=== PATIENT | female | born 1985 | race African-American/Black ===

== ENCOUNTER 2017-10-24 09:55 | Emergency (ER) | payer MEDICAID, OTHER ==
[~2017-10-24 09:55] MED LIST: Z.0.NO CURRENT MEDS
[2017-10-24] MEDS ORDERED: IOHEXOL 350 MG/ML 10 ML VIAL (for RAD DIAG) IVCONTRAST ONE (09:56)
[2017-10-24 09:59] VITALS: BP 156/88; PULSE 71; RESP 16; TEMP 98.8; O2SAT 98
[2017-10-24] MEDS ORDERED: SODIUM CHLOR 0.9% 1000 ML INJ 1,000 ML IV SCH (10:10)
[2017-10-24] MEDS ORDERED: PANTOPRAZOLE SODIUM 40 MG VIAL IVP ONE (10:15)
[2017-10-24] MEDS ORDERED: MORPHINE SULFATE 4 MG/ML INJ IV PUSH ONE (10:15)
[2017-10-24] MEDS ORDERED: SODIUM CHLORIDE 0.9% FLUSH 10 ML FLUSH IV FLUSH PRN (10:15)
[2017-10-24] MEDS ORDERED: ONDANSETRON HCL 4 MG/2 ML VIAL IVP ONE (10:15)
--- NOTE | 2017-10-24 10:18 | PD ---
HPI Chief Complaint: GI Complaint Time Seen by Provider: 10:07 Travel History International Travel<30 days: No Contact w/Intl Traveler<30days: No Traveled to known affect area: No History of Present Illness HPI 31-year-old Afro-[place] female presents the emergency department with 3 day history of nausea, vomiting, and diarrhea. Patient denies specific fever. Time she threw up was 45 minutes prior to arrival. Patient denies urinary or vaginal symptoms. Last menstrual period was October 11. She denies upper respiratory symptoms or chest pain. No shortness of breath. Patient is not a heavy drinker. She denies blood in the vomitus or diarrhea. Pain is about a 7 out of 10. Patient has no family history of Crohn's or colitis. Patient has no known drug allergies. PFSH Past Medical History Medical History: Denies Significant Hx Diminished Hearing: No Headaches: Yes ?: Not LMP: 10/11/17 : 3 Para: 2 : 1 Past Surgical History Surgical History: No Previous Surgery Section: Yes Social History Alcohol Use: Yes (OCC) Tobacco Use: No Substance Use: No Allergies-Medications (Allergen,Severity, Reaction): Coded Allergies: No Known Allergies (Verified Allergy, Unknown, 10/24/17) Reported Meds & Prescriptions Reported Meds & Active Scripts Active Zofran (Ondansetron HCl) 4 Mg Tab 4 Mg PO Q6HR PRN Review of Systems Except as stated in HPI: all other systems reviewed are Neg General / Constitutional: No: Fever, Chills Eyes: No: Visual changes HENT: No: Headaches Cardiovascular: No: Chest Pain or Discomfort Respiratory: No: Shortness of Breath Gastrointestinal: Positive: Nausea, Vomiting, Diarrhea, Abdominal Pain, No: Hematemesis, Hematochezia, Loss of Appetite Genitourinary: No: Dysuria Musculoskeletal: No: Pain Skin: No Rash Neurologic: No: Weakness Psychiatric: No: Depression Endocrine: No: Polydipsia Hematologic/Lymphatic: No: Easy Bruising Physical Exam Narrative GENERAL: Patient is ambulatory but appears ill but not septic. SKIN: Warm and dry. Mild pallor. Moderate decreased turgor. HEAD: Atraumatic. Normocephalic. EYES: Pupils equal and round. No scleral icterus. No injection or drainage. ENT: No nasal bleeding or discharge. Mucous membranes pink and dry. [place] clear. Airway is patent. NECK: Trachea midline. Supple and nontender. CARDIOVASCULAR: Regular rate and rhythm. RESPIRATORY: No accessory muscle use. Clear to auscultation. Breath sounds equal bilaterally. GASTROINTESTINAL: Abdomen soft, mild to moderate generalized tenderness, with more localized tenderness in the right lower quadrant, without guarding, but mild peritoneal signs, nondistended. Decreased bowel sounds in all quadrants. Hepatic and splenic margins not palpable. MUSCULOSKELETAL: Extremities without clubbing, cyanosis, or edema. No obvious deformities. NEUROLOGICAL: Awake and alert. No obvious cranial nerve deficits. Motor grossly within normal limits. Five out of 5 muscle strength in the arms and legs. Normal speech. PSYCHIATRIC: Appropriate mood and affect; insight and judgment normal. Data Data Last Documented VS Vital Signs Date Time Temp Pulse Resp B/P (MAP) Pulse Ox O2 Delivery O2 Flow Rate FiO2 10/24/17 10:26 Room Air 10/24/17 09:59 98.8 71 16 98 Orders Orders Complete Blood Count With Diff (10/24/17 10:10) Comprehensive Metabolic Panel (10/24/17 10:10) Lipase (10/24/17 10:10) Prothrombin Time / Inr (Pt) (10/24/17 10:10) Act Partial Throm Time (Ptt) (10/24/17 10:10) Urinalysis - C+S If Indicated (10/24/17 10:10) Ct Abd/Pel W Iv Contrast(Rout) (10/24/17 10:10) Iv Access Insert/Monitor (10/24/17 10:10) Ecg Monitoring (10/24/17 10:10) Oximetry (10/24/17 10:10) NPO (10/24/17 10:10) Morphine Inj (Morphine Inj) (10/24/17 10:15) Ondansetron Inj (Zofran Inj) (10/24/17 10:15) Pantoprazole Inj (Protonix Inj) (10/24/17 10:15) Sodium Chlor 0.9% 1000 Ml Inj (Ns 1000 M (10/24/17 10:10) Sodium Chloride 0.9% Flush (Ns Flush) (10/24/17 10:15) Ed Urine Pregnancytest Poc (10/24/17 10:10) Iohexol 350 Inj (Omnipaque 350 Inj) (10/24/17 09:56) Labs Laboratory Tests Test 10/24/17 10:30 White Blood Count 9.1 TH/MM3 Red Blood Count 4.63 MIL/MM3 Hemoglobin 15.2 GM/DL Hematocrit 45.0 % Mean Corpuscular Volume 97.2 FL Mean Corpuscular Hemoglobin 32.8 PG Mean Corpuscular Hemoglobin Concent 33.8 % Red Cell Distribution Width 12.2 % Platelet Count 306 TH/MM3 Mean Platelet Volume 8.7 FL Neutrophils (%) (Auto) 67.3 % Lymphocytes (%) (Auto) 22.8 % Monocytes (%) (Auto) 7.8 % Eosinophils (%) (Auto) 1.0 % Basophils (%) (Auto) 1.1 % Neutrophils # (Auto) 6.1 TH/MM3 Lymphocytes # (Auto) 2.1 TH/MM3 Monocytes # (Auto) 0.7 TH/MM3 Eosinophils # (Auto) 0.1 TH/MM3 Basophils # (Auto) 0.1 TH/MM3 CBC Comment DIFF FINAL Differential Comment Prothrombin Time 10.7 SEC Prothromb Time International Ratio 1.1 RATIO Activated Partial Thromboplast Time 28.4 SEC Urine Color YELLOW Urine Turbidity CLOUDY Urine pH 6.5 Urine Specific Colony 1.024 Urine Protein TRACE mg/dL Urine Glucose (UA) NEG mg/dL Urine Ketones NEG mg/dL Urine Occult Blood NEG Urine Nitrite NEG Urine Bilirubin NEG Urine Urobilinogen LESS THAN 2.0 MG/DL Urine Leukocyte Esterase MOD Urine RBC 1 /hpf Urine WBC 6 /hpf Urine Squamous Epithelial Cells 59 /hpf Urine Bacteria OCC /hpf Urine Hyaline Casts 2 /lpf Urine Mucus FEW /lpf Microscopic Urinalysis Comment CULT NOT INDICATED Blood Urea Nitrogen 9 MG/DL Creatinine 0.77 MG/DL Random Glucose 95 MG/DL Total Protein 7.8 GM/DL Albumin 3.8 GM/DL Calcium Level 8.8 MG/DL Alkaline Phosphatase 57 U/L Aspartate Amino Transf (AST/SGOT) 14 U/L Alanine Aminotransferase (ALT/SGPT) 22 U/L Total Bilirubin 0.8 MG/DL Sodium Level 137 MEQ/L Potassium Level 3.7 MEQ/L Chloride Level 104 MEQ/L Carbon Dioxide Level 27.1 MEQ/L Anion Gap 6 MEQ/L Estimat Glomerular Filtration Rate 107 ML/MIN Lipase 68 U/L [facility] Medical Decision Making Medical Screen Exam Complete: Yes Emergency Medical Condition: Yes Differential Diagnosis Gastroenteritis. Colitis. Diverticulitis. Appendicitis. Narrative Course Patient is medically stable at time of exam. Labs are obtained including CBC, CMP, lipase, urinalysis, and urine . IV access is obtained patient is given 4 mg morphine as well as 4 mg Zofran IV. Patient is given 1000 mL normal saline bolus. CT of the abdomen and pelvis with IV contrast was ordered. CBC is unremarkable. CMP is unremarkable. Urinalysis is unremarkable. CT of the abdomen shows no acute process other than a ovarian cyst on the left ovary. Patient is felt to have a viral gastroenteritis. Treated with Zofran 4 mg every 6 hours when necessary #12. Patient is to take Tylenol and ibuprofen, rest, push fluids, and follow up if symptoms do not continue to improve over the next 24-48 hours. Next 2 days. Diagnosis Primary Impression: Gastroenteritis and colitis, viral Referrals: Primary Care Physician Patient Instructions: Acute Diarrhea (ED), Acute Nausea and Vomiting (ED), General Instructions Departure Forms: Work Release Enter return to work date: Oct 27, 2017 Additional Instructions: CBC is unremarkable. CMP is unremarkable. Urinalysis is unremarkable. CT of the abdomen shows no acute process other than a ovarian cyst on the left ovary. Patient is felt to have a viral gastroenteritis. Treated with Zofran 4 mg every 6 hours when necessary #12. Patient is to take Tylenol and ibuprofen, rest, push fluids, and follow up if symptoms do not continue to improve over the next 24-48 hours. Next 2 days. Med/Other Pt SpecificInfo: Prescription(s) given Scripts Ondansetron (Zofran) 4 Mg Tab 4 MG PO Q6HR Y for NAUSEA OR VOMITING, #12 TAB 0 Refills Prov: Jeannette Parada DO 10/24/17 Disposition: 01 DISCHARGE HOME Condition: Stable Sascha Alves Oct 24, 2017 10:18
[2017-10-24 10:42] LABS: AUTOMATED NEUTROPHIL # 6.1 TH/MM3 (1.8-7.7); BASOPHIL # 0.1 TH/MM3 (0-0.2); BASOPHIL % 1.1 % (0.0-2.0); EOSINOPHIL # 0.1 TH/MM3 (0-0.4); HEMO FLAGS DIFF FINAL; LYMPH % 22.8 % (9.0-44.0); LYMPHOCYTE # 2.1 TH/MM3 (1.0-4.8); MEAN CELL VOLUME 97.2 FL (80.0-100.0); MEAN CORPUSCULAR HEMOGLOBIN 32.8 PG (27.0-34.0); MEAN CORPUSCULAR HGB CONC 33.8 % (32.0-36.0); MONO % 7.8 % (0.0-8.0); NEUT % 67.3 % (16.0-70.0); PLATELET COUNT 306 TH/MM3 (150-450); RED BLOOD COUNT 4.63 MIL/MM3 (4.00-5.30); RED CELL DISTRIBUTION WIDTH 12.2 % (11.6-17.2); WHITE BLOOD COUNT 9.1 TH/MM3 (4.0-11.0)
[2017-10-24 10:50] LABS: APTT (PATIENT) 28.4 SEC (24.3-30.1); INTERNATIONAL NORMALIZED RATIO 1.1 RATIO; PROTHROMBIN TIME - PATIENT 10.7 SEC (9.8-11.6)
[2017-10-24 10:55] LABS: BACTERIA, URINE OCC /hpf; BLOOD, URINE NEG (NEG); COMMENT (UR) CULT NOT INDICATED; CULTURE IF INDICATED CULT NOT INDICATED; GLUCOSE,URINE NEG (NEG); HYALINE CAST, URINE 2 /lpf (RARE); KETONE, URINE NEG (NEG); MUCUS URINE FEW /lpf (OCC); NITRITE,URINE NEG (NEG); PH, URINE 6.5 (5.0-8.5); SQUAMOUS EPITHELIAL CELL URINE 59 /hpf (0-5); URINE COLOR YELLOW (YELLW/STRAW)
[2017-10-24 11:06] LABS: ALT (GPT) 22 U/L (10-53); ANION GAP 6 MEQ/L (5-15); AST (GOT) 14 U/L (15-37); BICARBONATE 27.1 MEQ/L (21.0-32.0); BLOOD UREA NITROGEN 9 MG/DL (7-18); CHLORIDE 104 MEQ/L (98-107); GLOMERULAR FILTRATION RATE 107 ML/MIN (>89); POTASSIUM 3.7 MEQ/L (3.5-5.1); SODIUM (NA) 137 MEQ/L (136-145)
[2017-10-24 11:09] LABS: ALKALINE PHOSPHATASE 57 U/L (45-117); TOTAL BILIRUBIN ADULT 0.8 MG/DL (0.2-1.0)
--- NOTE | 2017-10-24 11:20 | RADRPT ---
EXAM DATE/TIME: 10/24/2017 11:00 [facility] COMPARISON: No previous studies available for comparison. INDICATIONS : Lower abdomen pain with nausea, vomiting and diarrhea for two days. IV CONTRAST: 80 cc Omnipaque 350 (iohexol) IV ORAL CONTRAST: No oral contrast ingested. RADIATION DOSE: 6.12 CTDIvol (mGy) MEDICAL HISTORY : None SURGICAL HISTORY : section. ENCOUNTER: Initial ACUITY: 2 days PAIN SCALE: 6/10 LOCATION: Bilateral lower quadrant TECHNIQUE: Volumetric scanning of the abdomen and pelvis was performed. Using automated exposure control and ad justment of the mA and/or kV according to patient size, radiation dose was kept as low as reasonably achievable to obtain optimal diagnostic quality images. DICOM format image data is available electro nically for review and comparison. FINDINGS: LOWER LUNGS: The visualized lower lungs are clear. LIVER: Homogeneous density without lesion. There is no dilation of the biliary tree. No calcified gallston es. SPLEEN: Normal size without lesion. PANCREAS: Within normal limits. KIDNEYS: Normal in size and shape. There is no mass, stone or hydronephrosis. ADRENAL GLANDS: Within normal limits. VASCULAR: There is no aortic aneurysm. BOWEL/MESENTERY: The stomach, small bowel, and colon demonstrate no acute abnormality. There is no free intraperitone al air or fluid. The appendix is well-visualized, normal. ABDOMINAL WALL: Within normal limits. RETROPERITONEUM: There is no lymphadenopathy. BLADDER: No wall thickening or mass. REPRODUCTIVE: There is a 2.2 cm cyst of the left ovary. No perceptible inflammatory changes. No free fluid. INGUINAL: There is no lymphadenopathy or hernia. MUSCULOSKELETAL: Within normal limits for patient age. CONCLUSION: Essentially normal for a patient this age. No obstruction or acute inflammatory changes are demonstra thee. Unremarkable appendix. 2 cm left ovarian cyst. Boubacar Coelho MD on October 24, 2017 at 11:17 Board Certified Radiologist. This report was verified electronically.
[2017-10-24] MEDS ORDERED: ZOFR4TAB PO (12:28)
== END 2017-10-24 12:47 | disposition home or self-care (01) ==
LOC: NEPD 09:55
DX: A08.4 Viral intestinal infection, unspecified (principal); N83.202 Unspecified ovarian cyst, left side; R51 Headache
CPT/HCPCS: 74177; 80053; 81001; 83690; 84703; 85025; 85610; 85730; 96374; 96375; 99285; C9113; J2270; J2405; J7030; Q9967

== ENCOUNTER 2017-11-01 00:18 | Emergency (ER) | payer MEDICAID ==
[~2017-11-01] VITALS: Ht 157.5 cm; Wt 75.0 kg
[~2017-11-01 00:18] MED LIST changes: -Z.0.NO CURRENT MEDS; +ZOFR4TAB PO
[2017-11-01 00:19] VITALS: BP 148/81; PULSE 75; RESP 16; TEMP 99; O2SAT 99
[2017-11-01] MEDS ORDERED: DICL0.1S RIGHT EYE (01:13)
[2017-11-01] MEDS ORDERED: oxyCODONE/ACETAMINOPHEN 5 MG/325 MG TAB PO ONE (01:15)
[2017-11-01] MEDS ORDERED: PROPARACAINE HCL 0.5% OPHT SOLN 15 ML BTL RIGHT EYE ONE (01:15)
--- NOTE | 2017-11-01 01:27 | PD ---
HPI Chief Complaint: Eye Problems/Injury Time Seen by Provider: 00:57 Travel History International Travel<30 days: No Contact w/Intl Traveler<30days: No Traveled to known affect area: No History of Present Illness HPI 31-year-old black female presents to emergency Department with complaints of a red painful eye since yesterday evening around 2 in the morning. She states that she woke with pain in her right eye. It has progressively slowly throughout the day become more painful and she has now developed photophobia. She states that she does not have any foreign body sensation. She denies any direct trauma. She states that she does wear contacts but has not worn them in 2 weeks. Some slight blurred vision. No diplopia, trauma, pruritus. She does have some mild slight tearing and slight mucus that she is developed over the last few hours. She denies any recent illness. No fever chills. No cough, congestion. PFSH Past Medical History Medical History: Denies Significant Hx Diminished Hearing: No Headaches: Yes Tetanus Vaccination: < 5 Years ?: Not LMP: 10/11/17 : 3 Para: 2 : 1 Past Surgical History Section: Yes Social History Alcohol Use: Yes (OCC) Tobacco Use: No Substance Use: No Allergies-Medications (Allergen,Severity, Reaction): Coded Allergies: No Known Allergies (Verified Allergy, Unknown, 11/01/17) Reported Meds & Prescriptions Reported Meds & Active Scripts Active Diclofenac Opth Drops 0.1% Soln 1 Drop RIGHT EYE QID Review of Systems Except as stated in HPI: all other systems reviewed are Neg General / Constitutional: No: Fever Eyes: Positive: Blurred Vision, Photophobia, Drainage, Redness, Pain, Tearing, Visual changes, No: Diploplia, Foreign Body Sensation, Blind Spots, Blindness HENT: No: Headaches, Sore Throat, Rhinitis, Rhinorrhea, Neck Stiffness, Neck Pain Skin: No Rash, No Itching Physical Exam Narrative GENERAL: Well-developed, well-nourished in no acute distress. Nontoxic appearing. 20/25 left, 20/30 on the right HEAD: Normocephalic, atraumatic. EYES: Pupils equal round and reactive. Extraocular motions intact. No scleral icterus. No injection or drainage in the left eye. The right eye is injected. Lids are flipped and no foreign body seen. Alcaine is instilled in the right eye with some improvement of her pain. Fluorescein stain is negative for corneal abrasion. Anterior chambers clear. Positive red reflex. Optic disc is clear. ENT: TMs clear without erythema. The external auditory canals clear. Nose: clear . Posterior pharynx is pink and moist. No tonsillar edema or exudate. Uvula midline. Airway patent. NECK: Trachea midline.Supple, nontender, moves head freely. No central bony tenderness or spasm. CARDIOVASCULAR: Regular rate and rhythm without murmurs, gallops, or rubs. RESPIRATORY: Clear to auscultation. Breath sounds equal bilaterally. No wheezes , rales, or rhonchi. GASTROINTESTINAL: Abdomen soft, non-tender, nondistended. No hepato-splenomegaly , or palpable masses. No guarding. EXTREMITIES: No clubbing, cyanosis, or edema. No joint tenderness, effusion, or edema noted. BACK: Nontender without deformity or crepitance. No flank tenderness. Data Data Last Documented VS Vital Signs Date Time Temp Pulse Resp B/P (MAP) Pulse Ox O2 Delivery O2 Flow Rate FiO2 11/01/17 00:31 20 11/01/17 00:19 99.0 75 148/81 (103) 99 Room Air Orders Orders Proparacaine 0.5% Opth Soln (Alcaine 0.5 (11/01/17 01:15) Oxycodone-Acetamin 5-325 Mg (Percocet (11/01/17 01:15) Ed Discharge Order (11/01/17 01:15) MDM Medical Decision Making Medical Screen Exam Complete: Yes Emergency Medical Condition: Yes Medical Record Reviewed: Yes Differential Diagnosis MDM: High Differential diagnoses: Acute conjunctivitis (bacterial, viral, allergic, traumatic), iritis, foreign body, corneal abrasion, corneal ulcer Narrative Course Patient's ocular exam is only revealing for a red eye. Etiology is unclear. She denies any connective tissue disorders. I see no obvious infectious process. The patient will be placed on diclofenac drops. She is given Percocet 5 mg by mouth here in the ER and is referred to the animation director for a second opinion. Diagnosis Primary Impression: Acute iritis, right eye Referrals: Marilyn Montes MD 1 day Patient Instructions: Narcotic given in the ED Additional Instructions: Rest. Wash eyelashes with baby shampoo 3 times daily. Warm compresses. Diclofenac ophthalmic drops. No contacts. Followup with an eye doctor tomorrow. Return to the ER if any problems. Med/Other Pt SpecificInfo: Prescription(s) given Scripts Diclofenac Opth Drops (Diclofenac Opth Drops) 0.1% Soln 1 DROP RIGHT EYE QID for Pain Management, #2.5 ML 0 Refills Prov: Lindsey Jalloh MD 11/01/17 Disposition: 01 DISCHARGE HOME Condition: Stable Jai Malik Nov 01, 2017 01:27
== END 2017-11-01 01:33 | disposition home or self-care (01) ==
LOC: NEPD 00:18
DX: H20.00 Unspecified acute and subacute iridocyclitis (principal)
CPT/HCPCS: 99283